=== PATIENT | female | born 1995 ===

== ENCOUNTER 2021-02-04 11:37 | Emergency (ER) | payer BC, SELFPAY ==
[2021-02-04 11:43] VITALS: BP 118/61; PULSE 85; RESP 16; TEMP 36.7; O2SAT 100
--- NOTE | 2021-02-04 11:47 | ED.URI ---
HPI - URI/Sore Throat General Chief Complaint: Upper Respiratory Infection Stated Complaint: Couogh,Sinus Drainage Time Seen by Provider: 02/04/21 11:49 Source: patient, RN notes reviewed and old records reviewed Mode of arrival: ambulatory Limitations: no limitations History of Present Illness HPI Narrative: 25-year-old female who presents to [facility] with complaints of one week duration of cough and nasal drainage. Patient states that she has not had any fevers, chills or sweats, no ear pain no body aches, or any shortness of breath or sore throat. Patient reports that she has been taking DayQuil and NyQuil using Nasacort nasal spray and has been taking some Zyrtec. Patient has had COVID immunizations. MD elicited complaint: cough, rhinorrhea and nasal congestion Related Data Home Medications Medication Instructions Recorded Confirmed spironolactone 02/04/21 Allergies Allergy/AdvReac Type Severity Reaction Status Date / Time No Known Allergies Allergy Verified 12/30/20 10:59 Review of Systems Review of Systems: CONSTITUTIONAL: Denies fever, chills, or sweats. EYES: Denies visual changes, redness, or discharge. ENT: positive for rhinorrhea, congestion, no sore throat, or otalgia. CARDIOVASCULAR: Denies chest pain, palpitations, or edema. RESPIRATORY: positive cough denies dyspnea. GASTROINTESTINAL: Denies abdominal pain, nausea, vomiting, or diarrhea. GENITOURINARY: Denies dysuria or hematuria. SKIN: Denies rash or itching. MUSCULOSKELETAL: Denies back pain, joint pain, or myalgia. NEUROLOGIC: Denies headache, numbness, or weakness. PSYCHIATRIC: Denies anxiety or depression. All systems reviewed & are unremarkable except as noted in HPI and below PMFSH Past Medical History Medical History (Updated 02/05/21 @ 08:29 by Mirtha Martínez NP) Acne Exercise-induced asthma Seasonal allergies Surgical History Surgical History (Updated 02/05/21 @ 08:25 by Mirtha Martínez NP) No history of previous surgery Family History Family History (Updated 02/05/21 @ 08:26 by Mirtha Martínez NP) Other No significant family history Social History Social History (Updated 02/04/21 @ 12:03 by Mirtha Martínez NP) Smoking status: Never smoker Alcohol intake: current Alcohol use details: social Substance use: never Living arrangements: with family Gender identity (if verbalized by the patient): Female Comments At time of signature, agree with nursing past medical, surgical, social and family history. There is no relevant family history pertinent to the presenting complaint Exam Narrative: GENERAL: Well-appearing, well-nourished, and in no acute distress. HEAD: Normocephalic, atraumatic. EYES: PERRLA and EOMI. ENT: Nares swollen with clear rhinorrhea, no epistaxis. Mucous membranes moist.TM's normal with good light reflex, throat has mild redness with no exudates or lesions, no tonsil enlargement, post nasal drainage noted. NECK: Supple. no lymphadenopathy CHEST: Clear to auscultation. No respiratory distress. SAO2 100% no cough noted while in clinic HEART: Regular rate and rhythm. No murmur heard. Normal peripheral pulses. ABDOMEN: Soft, nontender, nondistended, normal active bowel sounds. EXTREMITIES: Normal range of motion. No edema. SKIN: Warm, dry, no rash. NEURO: No focal deficits. Alert and oriented x3. Course Vital Signs Vital signs: Vital Signs Temperature 36.7 C 02/04/21 11:43 Pulse Rate 85 02/04/21 11:43 Respiratory Rate 16 02/04/21 11:43 Blood Pressure 118/61 02/04/21 11:43 Pulse Oximetry 100 02/04/21 11:43 Temperature 36.7 C 02/04/21 11:43 Pulse Rate 85 02/04/21 11:43 Respiratory Rate 16 02/04/21 11:43 Blood Pressure 118/61 02/04/21 11:43 Pulse Oximetry 100 02/04/21 11:43 MDM - URI/Sore Throat Differential Diagnosis Differential diagnosis: Likely upper respiratory infection, sinusitis, viral infection, pharyngitis and other
== END 2021-02-04 12:11 | disposition home or self-care (01) ==
PROVIDERS: Emergency Provider Registered Nurse; PCP Internal Medicine
DX: J06.9 Acute upper respiratory infection, unspecified (principal); J45.990 Exercise induced bronchospasm
CPT/HCPCS: 99211; G0463

== ENCOUNTER → 2021-02-28 14:29 | Outpatient (CLI) | payer BC, SELFPAY ==
--- NOTE | ~2021-02-28 | XR_ITS ---
EXAMINATION: XR pelvis 1-2V EXAM DATE: 02/28/2021 15:01 INDICATION: LBP with right hip pain . TECHNIQUE: Pelvis frontal projection(s) obtained and reviewed. There is no prior study for compariso n. FINDINGS: Hip and sacroiliac joints are symmetric and unremarkable. No evidence of avascular necrosi s. There are no acute fractures or dislocations identified. There is no subcutaneous gas. The soft tissue is unremarkable. There are no radiopaque foreign bodies. IMPRESSION: 1. Unremarkable pelvis x-ray exam. Reviewed, dictated and finalized at location A.
--- NOTE | ~2021-02-28 | XR_ITS ---
XR lumbar spine 2-3V DATE: 02/28/2021 15:00 INDICATION: Low back pain, right hip pain TECHNIQUE: AP, lateral, coned lateral lumbosacral views COMPARISON: None FINDINGS: There is slight levoscoliosis of the thoracolumbar spine. Normal alignment of the lumbar sp ine. No fracture or spondylolisthesis. The included lower thoracic and lumbar pedicles are intact. No bone destruction. Lumbar and lumbosacral interspaces are preserved. The sacroiliac joints are intact . IMPRESSION: Slight levoscoliosis of the thoracolumbar spine Reviewed, dictated and finalized at location A.
== END ==
DX: M54.50 Low back pain, unspecified (principal); M25.551 Pain in right hip; M41.85 Other forms of scoliosis, thoracolumbar region
CPT/HCPCS: 72100; 72170

== ENCOUNTER 2023-04-03 13:33 | Outpatient (CLI) | payer BC, SELFPAY ==
--- NOTE | ~2023-04-03 | XR_ITS ---
XR lumbar spine min 4V 04/03/2023 13:55 Indication: Low back pain Procedure: 6 views lumbar spine Comparison: 02/28/2021 Findings: Vertebral body heights are maintained. There is facet hypertrophy at L5-S1. No evidence for spondylolisthesis. No acute fracture or traumatic malalignment. Pedicles intact. Sacral foramen are symmetric. Impression: 1: Mild lumbar spondylosis. Reviewed, dictated and finalized at location B. [facility] Impression: 1: Mild lumbar spondylosis.
== END 2023-04-03 13:34 ==
PROVIDERS: PCP Family Medicine; Visit Provider Physician Assistant
DX: M47.896 Other spondylosis, lumbar region (principal)
CPT/HCPCS: 72110

== ENCOUNTER 2023-05-18 09:58 | Outpatient (CLI) | payer OTHER, SELFPAY ==
--- NOTE | ~2023-05-18 | MR_ITS ---
MRI of the lumbar spine Clinical History: Back pain Technique: Axial T2-weighted images, and sagittal T1-weighted, T2-weighted, and T2 fat-sat images wer e acquired. Findings: There is no fracture or subluxation of the lumbar spine. Vertebral bodies maintain normal h eight and alignment. No bone marrow signal abnormality seen. At L1-L2, L2-L3, L3-L4, L4-L5, the intervertebral discs maintain normal signal and position. No disc bulge or herniation T levels. There is mild facet joint degenerative changes at these levels. No spin al canal stenosis or neural foraminal narrowing at these levels. At L5-S1, there is central disc protrusion, mild facet arthropathy. No central canal stenosis or neur al foraminal narrowing. Paravertebral soft tissues are unremarkable. Impression: Mild degenerative spondylosis at L5-S1, as detailed above. Reviewed, dictated and finalized at [facility]. E ECOLOGIST Impression: Mild degenerative spondylosis at L5-S1, as detailed above.
== END 2023-05-18 09:59 ==
PROVIDERS: PCP Physician Assistant; Visit Provider Physician Assistant
DX: M47.817 Spondylosis without myelopathy or radiculopathy, lumbosacral region (principal)
CPT/HCPCS: 72148